=== PATIENT | female | born 1950 | race Caucasian/White ===

== ENCOUNTER 2020-07-27 11:38 | Emergency (ER) | payer MEDICARE ==
[2020-07-27 13:10] LABS: HEMOGLOBIN 13.2 gm/dl (12.3-15.3); RED BLOOD COUNT 4.12 M/UL (4.00-5.10); WHITE BLOOD COUNT 5.4 K/UL (4.5-11.0)
[2020-07-27 13:20] LABS: BUN/CREATININE RATIO 28 (0-10)
== END 2020-07-27 16:20 | disposition home or self-care (01) ==
LOC: ER1 11:38
PROVIDERS: Emergency Medicine
DX: S30.1XXA Contusion of abdominal wall, initial encounter (principal); W07.XXXA Fall from chair, initial encounter; Z86.73 Personal history of transient ischemic attack (TIA), and cerebral infarction without residual deficits
CPT/HCPCS: 80048; 85025; 99284

== ENCOUNTER 2020-10-15 08:28 | Emergency (ER) | payer MEDICARE ==
[2020-10-15] MEDS ORDERED: AUGMENTIN 875-1 EACH PO (09:09)
== END 2020-10-15 10:12 | disposition home or self-care (01) ==
LOC: ER1 08:28
DX: S81.851A Open bite, right lower leg, initial encounter (principal); I10 Essential (primary) hypertension; M06.9 Rheumatoid arthritis, unspecified; E78.5 Hyperlipidemia, unspecified; W54.0XXA Bitten by dog, initial encounter; Y92.009 Unspecified place in unspecified non-institutional (private) residence as the place of occurrence of the external cause; Z23 Encounter for immunization
CPT/HCPCS: 12001; 90471; 90714; 99283

== ENCOUNTER → 2021-08-14 | Outpatient (CLI) | payer MEDICARE ==
[~2021-08-14] MED LIST: AUGMENTIN 875-1 EACH PO
== END ==
LOC: RAD 12:16
DX: L03.011 Cellulitis of right finger (principal)
CPT/HCPCS: 73140